=== PATIENT | male | born 1950 | race African-American/Black ===

== ENCOUNTER 2023-12-26 17:20 | Inpatient (IN) | payer MEDICARE, BC ==
[~2023-12-26] VITALS: Ht 172.7 cm; Wt 73.5 kg
[2023-12-27 20:00] VITALS: BP 108/47; TEMP 99.1; O2SAT 99
[2023-12-27 21:48] VITALS: O2SAT 98
[2023-12-27] MEDS ORDERED: REMEDY ESSENTIAL ZINC PASTE 113 GM TOP PRN (22:45)
[2023-12-27] MEDS ORDERED: LAMO200T2 PO (23:37)
[2023-12-27] MEDS ORDERED: ATOR80TA PO (23:37)
[2023-12-27] MEDS ORDERED: CHOL100062 PO (23:37)
[2023-12-27] MEDS ORDERED: METH-806 PO (23:37)
[2023-12-27] MEDS ORDERED: ASPI81TA31 PO (23:37)
[2023-12-27] MEDS ORDERED: DOLU50TA PO (23:37)
[2023-12-27] MEDS ORDERED: THIA100T74 PO (23:37)
[2023-12-27] MEDS ORDERED: MARA300T4 PO (23:37)
[2023-12-27] MEDS ORDERED: FLUO40CA49 PO (23:37)
[2023-12-27] MEDS ORDERED: ACET-73 PO (23:37)
[2023-12-27] MEDS ORDERED: HYDR-894 PO (23:37)
[2023-12-27] MEDS ORDERED: TAMS-3 PO (23:37)
[2023-12-27] MEDS ORDERED: DICL100G31 TP (23:37)
[2023-12-27] MEDS ORDERED: OXYC-592 PO (23:37)
[2023-12-27] MEDS ORDERED: DORA100T PO (23:37)
[2023-12-27] MEDS ORDERED: NALO4SPR BNOSTRILS (23:37)
[2023-12-27] MEDS ORDERED: LIDO1ADH82 TP (23:37)
[2023-12-27] MEDS ORDERED: FOLI1TAB94 PO (23:37)
[2023-12-27] MEDS ORDERED: MULT-24 PO (23:37)
[2023-12-27] MEDS ORDERED: POLY17PO4 PO (23:37)
[2023-12-27] MEDS ORDERED: OLAN2.5T3 PO ×2 (23:37)
[2023-12-27] MEDS ORDERED: SENN8.6T19 PO (23:37)
[2023-12-27] MEDS ORDERED: GABA300C PO (23:37)
[2023-12-27] MEDS ORDERED: ABAL1.56 SQ (23:37)
[2023-12-28] MEDS ORDERED: NALOXONE NASAL SPRAY 4 MG SPRAY NS PRN (00:30)
[2023-12-28] MEDS ORDERED: OLANZAPINE 2.5 MG TABLET PO PRN (00:30)
[2023-12-28 06:57] VITALS: BP 137/62; TEMP 98.5; O2SAT 100
[2023-12-28] MEDS: FLUOXETINE HCL 10 MG CAPSULE PO SCH (08:22)
[2023-12-28] MEDS: MIRALAX 17 GM POWD.PACK PO SCH (08:22)
[2023-12-28] MEDS: ASPIRIN 81 MG TAB.CHEW PO SCH (08:23)
[2023-12-28] MEDS: FOLIC ACID 1 MG TABLET PO SCH (08:23)
[2023-12-28] MEDS: TAMSULOSIN HCL 0.4 MG CAP.SR.24H PO SCH (08:23)
[2023-12-28] MEDS: GABAPENTIN 300 MG CAPSULE PO SCH (08:23)
[2023-12-28] MEDS: THIAMINE HCL 100 MG TABLET PO SCH (08:23)
[2023-12-28] MEDS: CHOLECALCIFEROL 1,000 UNIT TABLET PO SCH (08:23)
[2023-12-28] MEDS: MULTIVITAMINS,THERAPEUTIC TABLET PO SCH (08:23)
[2023-12-28] MEDS: METHOCARBAMOL 500 MG TABLET PO SCH ×2 (08:23→16:08)
[2023-12-28] MEDS: SENNOSIDES 1 TABLET PO SCH (08:24)
[2023-12-28] MEDS: ATORVASTATIN 40 MG TABLET PO SCH (08:24)
[2023-12-28] MEDS: LAMOTRIGINE 200 MG TABLET PO SCH (08:45)
[2023-12-28 16:00] VITALS: BP 124/53; TEMP 97.8; O2SAT 98
[2023-12-28] MEDS: OLANZAPINE 2.5 MG TABLET PO SCH (17:07)
[2023-12-28 17:47] LABS: BASOPHILS % (AUTO) 0.4 % (0.0-2.0); EOSINOPHILS # (AUTO) 0.1 K/uL (0.0-0.7); EOSINOPHILS % (AUTO) 1.8 % (0.0-7.0); HEMATOCRIT 30.3 % (36.7-47.1); HEMOGLOBIN 9.7 g/dL (12.5-16.3); LYMPHOCYTES # (AUTO) 1.8 K/uL (0.8-4.8); LYMPHOCYTES % (AUTO) 24.2 % (20.5-51.5); MEAN CORPUSCULAR HEMOGLOBIN 24.9 uug (23.8-33.4); MEAN CORPUSCULAR HGB CONC 32 g/dL (32.5-36.3); MEAN CORPUSCULAR VOLUME 77.9 fL (73.0-96.2); MONOCYTES # (AUTO) 0.7 K/uL (0.1-1.30); MONOCYTES % (AUTO) 9.8 % (0.0-11.0); NEUTROPHILS # (AUTO) 4.8 K/uL (1.8-8.9); NEUTROPHILS % (AUTO) 63.8 % (38.5-71.5); PLATELET COUNT (AUTO) 580 K/uL (152-348); RED BLOOD CELL COUNT(AUTO) 3.89 MIL/uL (4.06-5.63); RED CELL DISTRIBUTION WIDTH 25.3 % (12.1-16.2); WHITE BLOOD COUNT (AUTO) 7.4 K/uL (3.6-10.2)
[2023-12-28 17:50] LABS: DIFFERENTIAL COMMENT 1
[2023-12-28 18:08] LABS: ALANINE AMINOTRANSFERASE 33 U/L (16-63); ALBUMIN 2.7 g/dL (3.4-5.0); ALKALINE PHOSPHATASE 136 U/L (50-136); ASPARTATE AMINOTRANSFERASE 19 U/L (15-37); BILIRUBIN,TOTAL 0.3 mg/dL (0.2-1.0); CALCIUM 9.1 mg/dL (8.5-10.1); CARBON DIOXIDE 28 mmol/L (21-32); CHLORIDE 103 mmol/L (98-107); CREATININE 1.1 mg/dL (0.6-1.3); GLUCOSE 108 mg/dL (74-106); SODIUM SERUM 139 mmol/L (136-145); TOTAL PROTEIN, SERUM 7.3 g/dL (6.4-8.2); UREA NITROGEN, BLOOD 18 mg/dL (7-18)
[2023-12-28] MEDS ORDERED: ENOXAPARIN SODIUM 40 MG/0.4 ML DISP.SYRIN SQ SCH (20:00)
[2023-12-28 20:12] VITALS: BP 96/42; TEMP 98.2; O2SAT 96
[2023-12-28] MEDS: ENOXAPARIN SODIUM 40 MG/0.4 ML DISP.SYRIN SQ SCH (21:21)
[2023-12-29 06:20] VITALS: BP 119/47; TEMP 98.1; O2SAT 96
[2023-12-29 08:31] LABS: BASOPHILS # (AUTO) 0.1 K/UL (0.0-0.2); BASOPHILS % (AUTO) 0.9 % (0.0-2.0); DIFFERENTIAL COMMENT 0; EOSINOPHILS # (AUTO) 0.1 K/uL (0.0-0.7); EOSINOPHILS % (AUTO) 1.6 % (0.0-7.0); LYMPHOCYTES # (AUTO) 1.8 K/uL (0.8-4.8); LYMPHOCYTES % (AUTO) 24.5 % (20.5-51.5); MEAN CORPUSCULAR HEMOGLOBIN 25.7 uug (23.8-33.4); MEAN CORPUSCULAR HGB CONC 33 g/dL (32.5-36.3); MEAN CORPUSCULAR VOLUME 77.4 fL (73.0-96.2); MONOCYTES # (AUTO) 0.8 K/uL (0.1-1.30); MONOCYTES % (AUTO) 11.2 % (0.0-11.0); NEUTROPHILS # (AUTO) 4.5 K/uL (1.8-8.9); NEUTROPHILS % (AUTO) 61.8 % (38.5-71.5); PLATELET COUNT (AUTO) 479 K/uL (152-348); RED BLOOD CELL COUNT(AUTO) 3.49 MIL/uL (4.06-5.63); RED CELL DISTRIBUTION WIDTH 24.9 % (12.1-16.2); WHITE BLOOD COUNT (AUTO) 7.3 K/uL (3.6-10.2)
[2023-12-29 09:07] LABS: THYROID STIMULATING HORMONE 1.832 mIU/mL (0.358-3.740)
[2023-12-29] MEDS: SOD FERRIC GLUC COMPLX/SUCROSE 125 MG in IV NORMAL SALINE 100 ML IV SCH (13:48)
[2023-12-29 16:08] VITALS: BP 124/46; TEMP 97.7; O2SAT 98
[2023-12-29] MEDS ORDERED: REMEDY ESSENTIAL ZINC PASTE 113 GM TOP PRN (17:45)
[2023-12-29 19:58] VITALS: BP 95/41; TEMP 98.9; O2SAT 93
[2023-12-29 23:02] LABS: *BILIRUBIN,URIN NEGATIVE (NEGATIVE); *CLARITY,URINE CLEAR (CLEAR); *COLOR,URINE YELLOW (YELLOW); *KETONES,URINE TRACE (NEGATIVE); *PROTEIN,URINE NEGATIVE (NEGATIVE); LEUKOCYTE ESTERASE ,URINE NEGATIVE (NEGATIVE); NITRITE, URINE NEGATIVE (NEGATIVE); UGLUCOSE NEGATIVE (NEGATIVE)
[2023-12-29 23:04] LABS: *BLOOD, URINE TRACE INTACT (NEGATIVE)
[2023-12-29 23:15] LABS: BACTERIA,URINE NONE SEEN /HPF (NONE SEEN); SQUAMOUS EPITHELIAL CELL,UR FEW /HPF (NONE SEEN); WBC,URINE 0-3 /HPF (0-3)
[2023-12-30] MEDS ORDERED: diphenhydrAMINE 25 MG CAP PO PRN (01:15)
[2023-12-30 06:04] VITALS: BP 109/47; TEMP 98.1; O2SAT 98
[2023-12-30 07:02] LABS: BASOPHILS % (AUTO) 0.6 % (0.0-2.0); EOSINOPHILS # (AUTO) 0.1 K/uL (0.0-0.7); EOSINOPHILS % (AUTO) 1.9 % (0.0-7.0); HEMATOCRIT 26.5 % (36.7-47.1); HEMOGLOBIN 8.6 g/dL (12.5-16.3); LYMPHOCYTES % (AUTO) 26.7 % (20.5-51.5); MEAN CORPUSCULAR HEMOGLOBIN 25.3 uug (23.8-33.4); MEAN CORPUSCULAR HGB CONC 32 g/dL (32.5-36.3); MEAN CORPUSCULAR VOLUME 78.3 fL (73.0-96.2); MONOCYTES # (AUTO) 0.7 K/uL (0.1-1.30); MONOCYTES % (AUTO) 9.7 % (0.0-11.0); NEUTROPHILS # (AUTO) 4.6 K/uL (1.8-8.9); NEUTROPHILS % (AUTO) 61.1 % (38.5-71.5); PLATELET COUNT (AUTO) 454 K/uL (152-348); RED BLOOD CELL COUNT(AUTO) 3.39 MIL/uL (4.06-5.63); RED CELL DISTRIBUTION WIDTH 25.1 % (12.1-16.2); WHITE BLOOD COUNT (AUTO) 7.5 K/uL (3.6-10.2)
[2023-12-30 07:28] LABS: DIFFERENTIAL COMMENT 1
[2023-12-30] MEDS ORDERED: MAG HYDROX/AL HYDROX/SIMETH 30 ML LIQUID UDC PO PRN (07:45)
[2023-12-30] MEDS: OXYCODONE HCL 5 MG TABLET PO PRN (09:14)
[2023-12-30] MEDS: DICYCLOMINE HCL 10 MG CAPSULE PO SCH (13:55)
[2023-12-30 16:14] VITALS: BP 118/38; TEMP 97.8; O2SAT 99
[2023-12-30 20:00] VITALS: BP 116/42; TEMP 98.7; O2SAT 98
[2023-12-30] MEDS ORDERED: MELATONIN 3 MG TABLET PO SCH (21:00)
[2023-12-30] MEDS: LAMOTRIGINE 200 MG TABLET PO SCH (21:13)
[2023-12-30] MEDS: CLONAZEPAM 0.5 MG TABLET PO PRN (22:45)
[2023-12-30] MEDS: MELATONIN 3 MG TABLET PO SCH (22:47)
[2023-12-31 06:00] VITALS: BP 144/52; TEMP 98.4; O2SAT 98
[2023-12-31 07:16] LABS: BASOPHILS % (AUTO) 0.6 % (0.0-2.0); EOSINOPHILS # (AUTO) 0.1 K/uL (0.0-0.7); EOSINOPHILS % (AUTO) 1.8 % (0.0-7.0); HEMATOCRIT 27.9 % (36.7-47.1); LYMPHOCYTES # (AUTO) 1.4 K/uL (0.8-4.8); LYMPHOCYTES % (AUTO) 20.2 % (20.5-51.5); MEAN CORPUSCULAR HEMOGLOBIN 25.3 uug (23.8-33.4); MEAN CORPUSCULAR HGB CONC 32 g/dL (32.5-36.3); MEAN CORPUSCULAR VOLUME 78.7 fL (73.0-96.2); MONOCYTES # (AUTO) 0.5 K/uL (0.1-1.30); MONOCYTES % (AUTO) 7.9 % (0.0-11.0); NEUTROPHILS # (AUTO) 4.8 K/uL (1.8-8.9); NEUTROPHILS % (AUTO) 69.5 % (38.5-71.5); PLATELET COUNT (AUTO) 419 K/uL (152-348); RED BLOOD CELL COUNT(AUTO) 3.55 MIL/uL (4.06-5.63); RED CELL DISTRIBUTION WIDTH 25.4 % (12.1-16.2); WHITE BLOOD COUNT (AUTO) 6.9 K/uL (3.6-10.2)
[2023-12-31 07:29] LABS: DIFFERENTIAL COMMENT 1
[2023-12-31 16:26] VITALS: BP 133/38; TEMP 98; O2SAT 100
[2023-12-31] MEDS: MARAVIROC 300 MG PO SCH (17:55)
[2023-12-31] MEDS: TIVICAY 50 MG PO SCH (17:56)
[2023-12-31] MEDS: PIFELTRO 100 MG PO SCH (17:57)
[2023-12-31 19:56] VITALS: BP 109/35; TEMP 98; O2SAT 98
[2024-01-01 06:35] VITALS: BP 124/53; TEMP 98.4; O2SAT 98
[2024-01-01 07:11] LABS: BASOPHILS % (AUTO) 0.7 % (0.0-2.0); EOSINOPHILS # (AUTO) 0.1 K/uL (0.0-0.7); EOSINOPHILS % (AUTO) 2.4 % (0.0-7.0); HEMATOCRIT 27.5 % (36.7-47.1); LYMPHOCYTES # (AUTO) 1.6 K/uL (0.8-4.8); LYMPHOCYTES % (AUTO) 25.6 % (20.5-51.5); MEAN CORPUSCULAR HEMOGLOBIN 25.6 uug (23.8-33.4); MEAN CORPUSCULAR HGB CONC 33 g/dL (32.5-36.3); MEAN CORPUSCULAR VOLUME 78.2 fL (73.0-96.2); MONOCYTES # (AUTO) 0.6 K/uL (0.1-1.30); MONOCYTES % (AUTO) 10.4 % (0.0-11.0); NEUTROPHILS # (AUTO) 3.8 K/uL (1.8-8.9); NEUTROPHILS % (AUTO) 60.9 % (38.5-71.5); PLATELET COUNT (AUTO) 380 K/uL (152-348); RED BLOOD CELL COUNT(AUTO) 3.51 MIL/uL (4.06-5.63); RED CELL DISTRIBUTION WIDTH 24.9 % (12.1-16.2); WHITE BLOOD COUNT (AUTO) 6.2 K/uL (3.6-10.2)
[2024-01-01 07:14] LABS: DIFFERENTIAL COMMENT 1
[2024-01-01 15:18] VITALS: BP 122/44; TEMP 98.4; O2SAT 99
[2024-01-01 20:00] VITALS: BP 118/40; TEMP 97.7; O2SAT 98
[2024-01-02 06:00] VITALS: BP 110/46; TEMP 98.6; O2SAT 96
[2024-01-02 15:08] VITALS: BP 113/59; TEMP 97.6; O2SAT 100
[2024-01-02 15:37] VITALS: BP 132/42; TEMP 97.6; O2SAT 100
[2024-01-02] MEDS: ARGININE/GLUTAMINE/CALCIUM BMB 1 EACH POWD.PACK PO SCH (16:02)
[2024-01-02] MEDS: MARAVIROC 300 MG PO SCH (16:17)
[2024-01-02 22:00] VITALS: BP 118/47; TEMP 98; O2SAT 100
[2024-01-03 06:00] VITALS: BP 126/45; TEMP 98.6; O2SAT 100; O2SAT 99
[2024-01-03] MEDS: PIFELTRO 100 MG PO SCH (08:20)
[2024-01-03] MEDS: TIVICAY 50 MG PO SCH (08:20)
[2024-01-03] MEDS ORDERED: PIFELTRO 100 MG PO SCH (09:00)
[2024-01-03 18:41] VITALS: BP 127/42; TEMP 97.9; O2SAT 100
[2024-01-03 20:32] VITALS: BP 128/41; TEMP 97.4; O2SAT 99
[2024-01-04 06:30] VITALS: BP 143/57; TEMP 97.5; O2SAT 98
[2024-01-04 07:21] LABS: BASOPHILS % (AUTO) 0.7 % (0.0-2.0); EOSINOPHILS # (AUTO) 0.1 K/uL (0.0-0.7); EOSINOPHILS % (AUTO) 2.2 % (0.0-7.0); HEMATOCRIT 28.8 % (36.7-47.1); HEMOGLOBIN 9.4 g/dL (12.5-16.3); LYMPHOCYTES # (AUTO) 1.9 K/uL (0.8-4.8); LYMPHOCYTES % (AUTO) 28.3 % (20.5-51.5); MEAN CORPUSCULAR HEMOGLOBIN 25.8 uug (23.8-33.4); MEAN CORPUSCULAR HGB CONC 33 g/dL (32.5-36.3); MONOCYTES # (AUTO) 0.6 K/uL (0.1-1.30); MONOCYTES % (AUTO) 9.8 % (0.0-11.0); NEUTROPHILS # (AUTO) 3.9 K/uL (1.8-8.9); PLATELET COUNT (AUTO) 341 K/uL (152-348); RED BLOOD CELL COUNT(AUTO) 3.64 MIL/uL (4.06-5.63); RED CELL DISTRIBUTION WIDTH 25.8 % (12.1-16.2); WHITE BLOOD COUNT (AUTO) 6.6 K/uL (3.6-10.2)
[2024-01-04 07:34] LABS: DIFFERENTIAL COMMENT 1
[2024-01-04 07:38] LABS: ALANINE AMINOTRANSFERASE 28 U/L (16-63); ALBUMIN 2.6 g/dL (3.4-5.0); ALKALINE PHOSPHATASE 142 U/L (50-136); ASPARTATE AMINOTRANSFERASE 19 U/L (15-37); BILIRUBIN,TOTAL 0.2 mg/dL (0.2-1.0); CALCIUM 9.2 mg/dL (8.5-10.1); CARBON DIOXIDE 31 mmol/L (21-32); CHLORIDE 106 mmol/L (98-107); CREATININE 0.9 mg/dL (0.6-1.3); GLUCOSE 97 mg/dL (74-106); MAGNESIUM 2.3 mg/dL (1.8-2.4); PHOSPHOROUS 4.6 mg/dL (2.5-4.9); POTASSIUM 4.6 mmol/L (3.5-5.1); SODIUM SERUM 143 mmol/L (136-145); TOTAL PROTEIN, SERUM 6.8 g/dL (6.4-8.2); UREA NITROGEN, BLOOD 15 mg/dL (7-18)
[2024-01-04 07:51] LABS: CHOLESTEROL 114 mg/dL (<200); HDL CHOLESTEROL 85 mg/dL (40-60); TRIGLYCERIDES 17 MG/DL (30-150)
[2024-01-04 16:00] VITALS: BP 111/57; TEMP 97.2; O2SAT 97
[2024-01-04 19:26] VITALS: BP 119/45; TEMP 98.2; O2SAT 98
[2024-01-05 06:38] VITALS: BP 152/61; TEMP 98.2; O2SAT 98
[2024-01-05] MEDS: ACETAMINOPHEN 500 MG TABLET PO PRN (06:41)
[2024-01-05 16:00] VITALS: BP 97/59; TEMP 97.6; O2SAT 99
[2024-01-05 20:00] VITALS: BP 122/45; TEMP 98.1; O2SAT 98
[2024-01-06 06:00] VITALS: BP 146/63; TEMP 98.1; O2SAT 96
[2024-01-06 11:07] LABS: BASOPHILS % (AUTO) 0.8 % (0.0-2.0); EOSINOPHILS # (AUTO) 0.2 K/uL (0.0-0.7); EOSINOPHILS % (AUTO) 3.6 % (0.0-7.0); HEMATOCRIT 30.9 % (36.7-47.1); HEMOGLOBIN 9.9 g/dL (12.5-16.3); LYMPHOCYTES # (AUTO) 1.5 K/uL (0.8-4.8); MEAN CORPUSCULAR HEMOGLOBIN 25.5 uug (23.8-33.4); MEAN CORPUSCULAR HGB CONC 32 g/dL (32.5-36.3); MEAN CORPUSCULAR VOLUME 79.6 fL (73.0-96.2); MONOCYTES # (AUTO) 0.5 K/uL (0.1-1.30); NEUTROPHILS # (AUTO) 4.1 K/uL (1.8-8.9); NEUTROPHILS % (AUTO) 64.6 % (38.5-71.5); PLATELET COUNT (AUTO) 316 K/uL (152-348); RED BLOOD CELL COUNT(AUTO) 3.88 MIL/uL (4.06-5.63); RED CELL DISTRIBUTION WIDTH 25.9 % (12.1-16.2); WHITE BLOOD COUNT (AUTO) 6.3 K/uL (3.6-10.2)
[2024-01-06 11:27] LABS: DIFFERENTIAL COMMENT 1
[2024-01-06 11:35] LABS: ALANINE AMINOTRANSFERASE 23 U/L (16-63); ALBUMIN 2.1 g/dL (3.4-5.0); ALKALINE PHOSPHATASE 128 U/L (50-136); ASPARTATE AMINOTRANSFERASE 17 U/L (15-37); BILIRUBIN,TOTAL 0.3 mg/dL (0.2-1.0); CALCIUM 8.1 mg/dL (8.5-10.1); CARBON DIOXIDE 30 mmol/L (21-32); CHLORIDE 106 mmol/L (98-107); CREATININE 1.1 mg/dL (0.6-1.3); GLUCOSE 104 mg/dL (74-106); SODIUM SERUM 143 mmol/L (136-145); TOTAL PROTEIN, SERUM 6.5 g/dL (6.4-8.2); UREA NITROGEN, BLOOD 17 mg/dL (7-18)
[2024-01-06 15:23] VITALS: BP 130/46; TEMP 98.6; O2SAT 100
[2024-01-06 20:00] VITALS: BP 139/45; TEMP 97.8; O2SAT 99
[2024-01-07 06:16] VITALS: BP 126/49; TEMP 98.5; O2SAT 94
[2024-01-07] MEDS: PROTEIN SUPPLEMENT (PROSTAT) 30 ML LIQUID PO SCH (08:25)
[2024-01-07] MEDS: CYANOCOBALAMIN 1000 MCG/ML VIAL IM SCH (09:40)
[2024-01-07] MEDS: FERROUS GLUCONATE 324 MG TABLET PO SCH (09:50)
[2024-01-07 15:08] VITALS: BP 120/45; TEMP 98; O2SAT 100
[2024-01-07] MEDS: ATORVASTATIN 20 MG TABLET PO SCH (20:55)
[2024-01-07 22:00] VITALS: BP 116/50; TEMP 98.2; O2SAT 100
[2024-01-08 06:00] VITALS: BP 145/63; TEMP 98.4; O2SAT 100
[2024-01-08] MEDS: FUROSEMIDE 40 MG TABLET PO ONE (08:22)
[2024-01-08 16:24] VITALS: BP 139/50; TEMP 98.4; O2SAT 100
[2024-01-09 02:37] VITALS: BP 145/46; TEMP 97.8; O2SAT 99
[2024-01-09 16:35] VITALS: BP 124/52; TEMP 98; O2SAT 95
[2024-01-09 22:00] VITALS: BP 112/45; TEMP 98.6; O2SAT 98
[2024-01-10 11:00] VITALS: BP 122/46; TEMP 98; O2SAT 96
[2024-01-10 15:36] VITALS: BP 131/41; TEMP 98; O2SAT 97
[2024-01-10 21:00] VITALS: BP 129/47; TEMP 97.9; O2SAT 99
[2024-01-11 07:01] VITALS: BP 145/50; TEMP 98.2; O2SAT 98
[2024-01-11] MEDS: LIDOCAINE 5% PATCH TD SCH (13:30)
[2024-01-11 21:22] VITALS: BP 114/47; TEMP 98; O2SAT 97
[2024-01-12 06:15] VITALS: BP 151/58; TEMP 98.2; O2SAT 95
[2024-01-12 06:33] VITALS: TEMP 98.2
[2024-01-12 08:00] VITALS: BP 111/49; TEMP 97.7; O2SAT 97
[2024-01-12 20:00] VITALS: BP 111/49; TEMP 97.7; O2SAT 97
[2024-01-13 05:43] VITALS: TEMP 98
[2024-01-13 07:34] VITALS: BP 133/46; TEMP 98.7; O2SAT 96
[2024-01-13 17:00] VITALS: TEMP 98
[2024-01-13 22:58] VITALS: BP 134/58; TEMP 98.2; O2SAT 98
[2024-01-14 08:30] VITALS: BP 133/58; TEMP 97.9; O2SAT 99
[2024-01-15 07:35] VITALS: BP 138/61; TEMP 97.9; O2SAT 98
[2024-01-15 17:25] VITALS: BP 137/50; TEMP 98.1; O2SAT 99
[2024-01-15] MEDS: OXYBUTYNIN XL 5 MG TABSR PO SCH (19:35)
[2024-01-15 20:25] VITALS: BP 149/57; TEMP 97.8; O2SAT 98
[2024-01-16 07:03] VITALS: BP 148/59; TEMP 98; O2SAT 97
[2024-01-16 14:16] LABS: BASOPHILS % (AUTO) 0.8 % (0.0-2.0); EOSINOPHILS # (AUTO) 0.2 K/uL (0.0-0.7); EOSINOPHILS % (AUTO) 3.3 % (0.0-7.0); HEMATOCRIT 31.6 % (36.7-47.1); HEMOGLOBIN 9.9 g/dL (12.5-16.3); LYMPHOCYTES # (AUTO) 1.8 K/uL (0.8-4.8); LYMPHOCYTES % (AUTO) 29.2 % (20.5-51.5); MEAN CORPUSCULAR HEMOGLOBIN 25.6 uug (23.8-33.4); MEAN CORPUSCULAR HGB CONC 32 g/dL (32.5-36.3); MEAN CORPUSCULAR VOLUME 81.2 fL (73.0-96.2); MONOCYTES # (AUTO) 0.7 K/uL (0.1-1.30); NEUTROPHILS # (AUTO) 3.3 K/uL (1.8-8.9); NEUTROPHILS % (AUTO) 54.7 % (38.5-71.5); PLATELET COUNT (AUTO) 326 K/uL (152-348); RED BLOOD CELL COUNT(AUTO) 3.89 MIL/uL (4.06-5.63); RED CELL DISTRIBUTION WIDTH 25.6 % (12.1-16.2); WHITE BLOOD COUNT (AUTO) 6.1 K/uL (3.6-10.2)
[2024-01-16 14:29] LABS: DIFFERENTIAL COMMENT 1
[2024-01-16 14:39] LABS: CALCIUM 8.6 mg/dL (8.5-10.1); CARBON DIOXIDE 32 mmol/L (21-32); CHLORIDE 103 mmol/L (98-107); CREATININE 1.1 mg/dL (0.6-1.3); GLUCOSE 108 mg/dL (74-106); MAGNESIUM 2.1 mg/dL (1.8-2.4); PHOSPHOROUS 4.3 mg/dL (2.5-4.9); POTASSIUM 3.3 mmol/L (3.5-5.1); SODIUM SERUM 143 mmol/L (136-145); UREA NITROGEN, BLOOD 19 mg/dL (7-18)
[2024-01-16 21:23] VITALS: BP 139/54; TEMP 97.8; O2SAT 97
[2024-01-17] MEDS: hydrALAZINE HCL 25 MG TABLET PO PRN (06:50)
[2024-01-17 07:01] VITALS: BP 173/68; TEMP 98.4; O2SAT 98
== END 2024-01-17 17:26 | DRG 559 ==
PROVIDERS: ADMIT Physical Medicine & Rehabilitation Pain Medicine; ATTEND Physical Medicine & Rehabilitation Pain Medicine
DX: Z47.89 Encounter for other orthopedic aftercare (principal); E43 Unspecified severe protein-calorie malnutrition; D68.59 Other primary thrombophilia; F03.93 Unspecified dementia, unspecified severity, with mood disturbance; G21.19 Other drug induced secondary parkinsonism; G82.20 Paraplegia, unspecified; G93.40 Encephalopathy, unspecified; G95.29 Other cord compression; F31.9 Bipolar disorder, unspecified; I12.9 Hypertensive chronic kidney disease with stage 1 through stage 4 chronic kidney disease, or unspecified chronic kidney disease; N18.9 Chronic kidney disease, unspecified; N40.0 Benign prostatic hyperplasia without lower urinary tract symptoms; Z87.891 Personal history of nicotine dependence; I69.393 Ataxia following cerebral infarction; D50.9 Iron deficiency anemia, unspecified; D75.839 Thrombocytosis, unspecified; G89.29 Other chronic pain; K21.9 Gastro-esophageal reflux disease without esophagitis; M48.04 Spinal stenosis, thoracic region; M19.90 Unspecified osteoarthritis, unspecified site; E53.8 Deficiency of other specified B group vitamins; E78.5 Hyperlipidemia, unspecified; R32 Unspecified urinary incontinence; R73.03 Prediabetes; Z79.899 Other long term (current) drug therapy
CPT/HCPCS: 36415; 82378; 82652; 83550; 83735; 84100; 84443; 85025; 85610; 97535-GO-CO; A4663; A6209; A9150; J1650; J2916; J3420

== ENCOUNTER 2024-01-14 21:09 | Emergency (ER) | payer BC, MEDICARE ==
[~2024-01-14] VITALS: Ht 172.7 cm; Wt 72.6 kg
[~2024-01-14 21:09] MED LIST: ABAL1.56 SQ; ACET-73 PO; ASPI81TA31 PO; ATOR80TA PO; CHOL100062 PO; DICL100G31 TP; DOLU50TA PO; DORA100T PO; FLUO40CA49 PO; FOLI1TAB94 PO; GABA300C PO; HYDR-894 PO; LAMO200T2 PO; LIDO1ADH82 TP; MARA300T4 PO; METH-806 PO; MULT-24 PO; NALO4SPR BNOSTRILS; OLAN2.5T3 PO; OXYC-592 PO; POLY17PO4 PO; SENN8.6T19 PO; TAMS-3 PO; THIA100T74 PO
[2024-01-14] MEDS: CARBAMIDE PEROXIDE OTIC DROP 15 ML BOTTLE OT ONE (22:35)
[2024-01-15 00:42] VITALS: BP 134/80; TEMP 98; O2SAT 99
== END 2024-01-15 00:42 | disposition short-term general hospital (02) ==
LOC: ER 21:09
DX: H61.22 Impacted cerumen, left ear (principal); R03.0 Elevated blood-pressure reading, without diagnosis of hypertension; E78.5 Hyperlipidemia, unspecified; F03.90 Unspecified dementia, unspecified severity, without behavioral disturbance, psychotic disturbance, mood disturbance, and anxiety; G82.20 Paraplegia, unspecified; N18.9 Chronic kidney disease, unspecified; N40.0 Benign prostatic hyperplasia without lower urinary tract symptoms; Z79.82 Long term (current) use of aspirin; Z79.899 Other long term (current) drug therapy; Z86.73 Personal history of transient ischemic attack (TIA), and cerebral infarction without residual deficits; Z88.5 Allergy status to narcotic agent
CPT/HCPCS: A4606; A4663